=== PATIENT | male | born 1960 | race Caucasian/White ===

== ENCOUNTER 2018-03-23 22:14 | Emergency (ER) | payer OTHER ==
[~2018-03-23] VITALS: Ht 165.1 cm; Wt 81.3 kg
[2018-03-23 22:27] VITALS: Ht 165.1 cm; Wt 81.3 kg
[2018-03-23 22:58] VITALS: BP 127/92
== END 2018-03-23 22:58 | disposition home or self-care (01) ==
LOC: ED 22:14
DX: J20.9 Acute bronchitis, unspecified (principal); J06.9 Acute upper respiratory infection, unspecified